=== PATIENT | male | born 1995 | race Asian ===

== ENCOUNTER → 2017-07-14 | Outpatient (CLI) | payer OTHER ==
--- NOTE | 2017-07-14 21:08 | HKNOTE ---
DATE OF SERVICE: 07/14/2017 MAIN COMPLAINT: Left knee pain. HISTORY OF PRESENT ILLNESS: This is a 21-year-old male, who is complaining of left knee pain. The patient was ice skating approximately 1 month ago when he injured his left knee. He has difficulty ambulating. He went to the emergency department at [facility] and was given the immobilizer. He does not use any braces or assistive devices. He does not require any pain medications. He has occasional catching and locking of the knee. He has occasional instability. He has no other complaints. PAST MEDICAL HISTORY: None. MEDICATIONS: None. PAST SURGICAL HISTORY: None. SOCIAL HISTORY: Denies tobacco, alcohol, or drug use. FAMILY HISTORY: Noncontributory. ALLERGIES: NO KNOWN DRUG ALLERGIES. PHYSICAL EXAMINATION: EXTREMITIES: Gait nonantalgic gait. Left knee, there is an effusion of the left knee. He is tender to palpation of the medial joint line. He is nontender to palpation over the lateral joint line, 0-130 degrees range of motion. Negative Ayesha's. Negative anterior drawer. Negative posterior drawer. Positive Fadia's. Motor strength 5/5, quadriceps, tibialis anterior, gastroc soleus. IMAGING PROCEDURE: MRI of left knee: There is a high-grade sprain of the posterior cruciate ligament. There is a tear of the posterior horn of the medial meniscus. There is grade 1 sprain of the medial collateral ligament. IMPRESSION: A 21-year-old male with a left knee posterior cruciate ligament sprain, medial collateral ligament sprain, left posterior horn medial meniscus tear. PLAN: He was advised to ice and elevate the left knee. He can take ibuprofen as needed. We will request authorization for referral to Dr. Osvaldo Hackett for followup. Dictated By: Rafa Gutiérrez MD /annia/zohreh /Document#: [id number]
== END | disposition home or self-care (01) ==
LOC: HKI 16:09
PROVIDERS: ATTEND Orthopaedic Surgery Adult Reconstructive Orthopaedic Surgery
DX: S83.522D Sprain of posterior cruciate ligament of left knee, subsequent encounter (principal); S83.412D Sprain of medial collateral ligament of left knee, subsequent encounter; M23.222 Derangement of posterior horn of medial meniscus due to old tear or injury, left knee; X58.XXXD Exposure to other specified factors, subsequent encounter; Y93.21 Activity, ice skating
CPT/HCPCS: G0463